=== PATIENT | female | born 2000 | race Caucasian/White ===

== ENCOUNTER 2024-07-15 17:12 | Emergency (ER) | payer OTHER, SELFPAY ==
[2024-07-15 17:21] VITALS: BP 128/72; PULSE 80; RESP 16; TEMP 36.8; O2SAT 99
--- NOTE | 2024-07-15 17:25 | ED.URI ---
HPI - URI/Sore Throat General Chief Complaint: Upper Respiratory Infection Stated Complaint: Sore Throat Time Seen by Provider: 07/15/24 17:25 History of Present Illness HPI Narrative: [age] year old female presented for complaint of sore throat for 5 days. States last week she had body aches and fatigue. Denies cough, sob, wheezing, n/v/d/f/c. Not taking anything for symptoms. Related Data Allergies Allergy/AdvReac Type Severity Reaction Status Date / Time montelukast (From Singulair) Allergy Mild Hives Verified 07/15/24 17:29 Review of Systems Review of Systems: CONSTITUTIONAL: reports body aches,denies fever, chills, or sweats. EYES: Denies visual changes, redness, or discharge. ENT: reports sore throat Denies rhinorrhea, congestion, or otalgia. CARDIOVASCULAR: Denies chest pain, palpitations, or edema. RESPIRATORY: Denies dyspnea. GASTROINTESTINAL: Denies abdominal pain, nausea, vomiting, or diarrhea. SKIN: Denies rash MUSCULOSKELETAL: Denies back pain NEUROLOGIC: Denies headache Exam Narrative: GENERAL: mildly Ill-appearing, no acute distress. EYES: conjunctivae clear ENT: Mucous membranes moist. TMs pearly mota with normal light reflex bilaterally; no tragal tenderness. Oropharynx erythematous without lesions. Tonsils not enlarged and without exudate. No drooling, no hoarseness, no trismus, uvula midline. No tripod positioning, hot potato voice, or soft palate swelling. NECK: Supple. No lymphadenopathy CHEST: Clear to auscultation, breath sounds equal. No respiratory distress, speaks in full sentences. HEART: Regular rate and rhythm. No murmur heard. SKIN: Warm, dry, no rash. NEURO: Alert and oriented x3. Flat affect. Course Course Emergency Course: Patient is aware of diagnosis, understands and agrees to treatment plan. Anticipatory guidance given. Patient agrees to follow-up as directed and is aware of reasons to seek care at the emergency department. Portions of this record may have been created with voice recognition software Level of Care: Express Care Visit Vital Signs Vital signs: Vital Signs Temperature 98.3 F 07/15/24 17:21 Pulse Rate 80 07/15/24 17:21 Respiratory Rate 16 07/15/24 17:21 Blood Pressure 128/72 07/15/24 17:21 Pulse Oximetry 99 07/15/24 17:21 Oxygen Delivery Room Air 07/15/24 17:21 Temperature 98.3 F 07/15/24 17:21 Pulse Rate 80 07/15/24 17:21 Respiratory Rate 16 07/15/24 17:21 Blood Pressure 128/72 07/15/24 17:21 Pulse Oximetry 99 07/15/24 17:21 Oxygen Delivery Room Air 07/15/24 17:21 MDM - URI/Sore Throat MDM Narrative Medical decision making narrative: neg strep result reviewed with pt. Advise supportive treatments. Patient is appropriate for outpatient treatment and follow-up. Differential Diagnosis Differential diagnosis: Likely upper respiratory infection, viral infection and pharyngitis Discharge Plan Discharge Clinical Impression: Upper respiratory infection Patient Disposition: Home, Self-Care Condition: Stable Instructions: Antibiotic Form, Upper Respiratory Infection (ED) Additional Instructions: Rapid strep swab was negative today You will be notified in a few days if the culture comes back positive for strep, and appropriate antibiotics will be called in at that time. if symptoms are due to a viral illness, it is not treated with antibiotics. Viral symptoms can be present for up to 10-14 days. Recommendations: Tylenol every 8 hours as needed for pain/fever Soft foods, cool liquids, warm tea. Gargle with warm saltwater twice a day. Chloraseptic spray and throat lozenges. Rest and stay hydrated. Flonase spray and Zyrtec for sinus congestion/drainage Cough syrup may cause drowsiness; avoid driving or take it at night time. --Follow up with your PCP --Go to the ER immediately if you cannot swallow your saliva, trouble breathing/wheezing, throat swelling, pain is persistent and severe Patient Language: Ukrainian Follow-up/Referrals: PHYSICIAN,YOGA TEACHER [Primary Care Provider] - Time of Disposition: 17:38
--- OUTSIDE RECORDS SUMMARY | 2024-07-15 17:27 | XMS_ITS | Referral Summary ---
Author Organization [facility] Address [address] [place] [address] Care Team Providers Care Cutting And Boning Supervisor Name Role Phone Unknown, Notinfile Primary Care Provider Unavail able Encounters Date Type Department Care Team Description 05/17/2024 Telephone [facility] [address] [place] [address] Karl Hernandez MD 05/01/2024 12:15 PM FLOUR MIXER Office Visit [facility] [address] [place] [address] Naomi Briones NP Sore throat (Primary Dx); Pharyngitis, unspecified etiology from Last 3 Months Allergies Active Allergy Reactions Criticality Noted Date Comments Amoxicillin Hives Medium 03/19/2018 1/2 of body covered Montelukast Hives Medium Reaction: Hives, Medications ibuprofen (ADVIL,MOTRIN) 600 mg tablet Take 1 tablet (600 mg total) by mouth every 8 (eight) hours as needed for pain or headaches (pain) 30 tablet 1 3 Active topiramate (TOPAMAX) 50 mg tablet Take 2 tablets by mouth once daily 90 tablet 3 Active tretinoin (RETIN-A) 0.05 % cream APPLY A PEA-SIZED AMOUNT TO THE ENTIRE FACE NIGHTLY 3 Active SUMAtriptan (IMITREX) 50 mg tabletIndication s:Migraine Take 1 tablet (50 mg total) by mouth once as needed for migraine May repeat after 2 hours. 10 tablet 1 4 12/16/19 25 Active rimegepant (NURTEC ODT) tablet,disintegr atingIndications :Migraine without status migrainosus, not intractable, unspecified migraine type Take 1 tablet (75 mg total) by mouth every other day 15 tablet 1 4 Active Additional Information Patient not taking.Reported on 05/01/2024 Tri-Sprintec, 28, 0.18/0.215/0.25 mg-35 mcg (28) per tablet Take 1 tablet by mouth daily 4 Active sertraline (ZOLOFT) 100 mg tabletIndication s:Persistent mood disorder Take 1 tablet by mouth once daily 30 tablet 5 Active Active Problems Problem Noted Date Diagnosed Date Annual physical exam 04/26/2023 Assessment & Plan (04/26/2023 2:47 PM FLOUR MIXER): Doing well. BMI:19.7 Underweight Routine labs ordered - GC/Chlamydia. HIV declined Preventative Screening Due: Pap Dietary and exercise recommendations given today. Recommend exercise at least 30 minutes moderate to vigorous exercise and some strength training most days of the week. (minimum 150 minutes weekly) Discussed MyPlate recommendations and increasing fruits and vegetables Age appropriate counseling provided - Safe sex practices, Seat belt use, alcohol/drug avoidance Vaccines due - HPV, COVID, FLU. TDAP RTC annually for f/u Left groin pain 04/26/2023 Assessment & Plan (04/26/2023 2:53 PM FLOUR MIXER): Recurrent. DDx: Renal Stone vs ovarian cyst vs colitis or diverticulitis etc Will obtain CT wo contrast Patient advised if no stones present on CT does not r/o stones given she may have passed one. If symptoms recur advised to go to Er immediately for evaluation Seasonal allergic rhinitis 01/24/2023 Assessment & Plan (01/24/2023 2:31 PM CDT): Chronic and recurrent. Will change anti-histamine Magalys daily. Trial of Astelin BID. Risks/benefits and alternatives discussed. If noted no improvement can switch to Flonase. If symptoms persist would refer to logging tractor operator Attention deficit 06/15/2022 Assessment & Plan (06/15/2022 11:32 AM FLOUR MIXER): Per patient chronic condition recently worsened. Given information for testing facilities to accurately access for diagnosis of ADD vs ADHD. This provider does not treat ADD or ADHD with stimulant medication. If diagnosis is confirmed could consider non stimulant medication such as Strattera Neck pain 05/18/2022 Assessment & Plan (07/20/2022 5:15 PM CDT): Chronic without radiation. No red flag symptoms. DDx:cervacalgia - Tylenol 500-1000mg q6h or Ibuprofen 800mg q8h prn pain. Counseled on risk of liver and/or kidney injury with prolonged use of medication. - Ice/Heat to affected area prn - Continue home exercises - Contact insurance to verify coverage for PT - F/u 4 weeks - Consider imaging if not improved at f/u Assessment & Plan (06/15/2022 11:33 AM FLOUR MIXER): Chronic without radiation. No red flag symptoms. DDx:cervacalgia - Tylenol 500-1000mg q6h or Ibuprofen 800mg q8h prn pain. Counseled on risk of liver and/or kidney injury with prolonged use of medication. - Ice/Heat to affected area prn - Exercise handout given - Contact insurance to verify coverage for PT - Telehealth f/u 4-6 weeks for re-evaluation - Consider imaging if not improved at f/u Assessment & Plan (05/18/2022 9:45 AM FLOUR MIXER): Chronic without radiation. No red flag symptoms. DDx:cervacalgia - Tylenol 500-1000mg q6h or Ibuprofen 800mg q8h prn pain. Counseled on risk of liver and/or kidney injury with prolonged use of medication. - Ice/Heat to affected area prn - Referred to PT for eval/treatment - RTC 4-6 weeks for re-evaluation - Consider imaging if not improved in 6 weeks. Persistent mood disorder 05/18/2019 Overview (10/22/2023): Anxiety and depression Assessment & Plan (01/24/2023 2:30 PM CDT): Chronic and stable. PHQ-9 score 2 pepe 7 not performed. -continue Zoloft 100 mg daily -follow-up 6 months Assessment & Plan (05/18/2022 9:43 AM FLOUR MIXER): Chronic and stable. PHQ-9 score 0 pepe 7 score -continue Zoloft 100 mg daily -follow-up 6 months Acquired kyphosis 10/03/2016 Acute bacterial tonsillitis 05/30/2016 Overview (08/02/2016): Acute bacterial tonsillitis Migraine headache 11/02/2009 Assessment & Plan (04/26/2023 2:50 PM FLOUR MIXER): Migraine headache Chronic and ongoing. No new neurological symptoms endorsed. Continue Migraine log to help ID triggers Continue Imitrex 50 mg prn. Risks/benefits and alternative discussed. Restart previous Topamax dosing 100mg daily. Consider counseling for stressors. Can also use Tylenol 500-1000mg q8h or Ibuprofen 800mg q8hr prn. Consider change in medication if notes appetite is suppressed. Samples of Nurtec given. Risks/benefits and alternatives discussed. F/u 3 months Assessment & Plan (01/24/2023 2:33 PM CDT): Migraine headache Chronic and improved. No new neurological symptoms endorsed. Continue Migraine log to help ID triggers Continue Imitrex 50 mg prn. Risks/benefits and alternative discussed. Continue Topamax 100mg daily. Consider counseling for stressors. Can also use Tylenol 500-1000mg q8h or Ibuprofen 800mg q8hr prn. Contact clinic 2-3 months if desiring change in medication due to ongoing suppressed appetite F/u 6 months Assessment & Plan (08/22/2022 9:13 AM CDT): Migraine headache Chronic and improved. No new neurological symptoms Continue Migraine log to help ID triggers Continue Imitrex 50 mg prn. Risks/benefits and alternative discussed. Increased Topamax 100mg daily. Risks/benefits and alternatives discussed Can also use Tylenol 500-1000mg q8h or Ibuprofen 800mg q8hr prn. F/u 4 weeks on telehealth appointment for re-eval or sooner if symptoms worsen. Assessment & Plan (07/20/2022 5:14 PM CDT): Migraine headache Recurrent. No focal neurological findings on previous PE. Start Migraine log to help ID triggers Continue Imitrex 50 mg prn. Risks/benefits and alternative discussed. Start Topamax 50mg daily. Risks/benefits and alternatives discussed Can also use Tylenol 500-1000mg q8h or Ibuprofen 800mg q8hr prn. F/u 4 weeks for re-eval or sooner if symptoms worsen. Assessment & Plan (06/15/2022 11:34 AM FLOUR MIXER): Migraine headache Recurrent. No focal neurological findings on previous PE. Start Migraine log to help ID triggers Change to Imitrex 50 mg prn. Risks/benefits and alternative discussed. Change to Elavil 10mg hs. Risks/benefits and alternatives discussed Can also use Tylenol 500-1000mg q8h or Ibuprofen 800mg q8hr prn. F/u 4 weeks for re-eval or sooner if symptoms worsen. Assessment & Plan (05/18/2022 9:43 AM FLOUR MIXER): Migraine headache Recurrent. No focal neurological findings on PE. Start Migraine log to help ID triggers Start (Maxalt 10mg prn). Risks/benefits and alternative discussed. Start Inderal 20mg BID. Risks/benefits and alternatives discussed Can also use Tylenol 500-1000mg q8h or Ibuprofen 800mg q8hr prn. F/u 4 weeks for re-eval or sooner if symptoms worsen. Immunizations Immunization Administration Dates Next Due DTaP 09/28/2006, 3,04/17/2002,02/13/2002 ,2001 Hep A, Pediatric 03/22/2014,12/03/2012 Hep B / HiB 04/17/2002,2001 Hep B, Adolescent or Pediatric 2001 HiB 01/11/2003,02/13/2002 IPV 09/28/2006,01/11/2003,02/13/2002 ,2001 MMR 09/28/2006,10/12/2002 Meningococcal ACWY, Unspecified 12/03/2012 Meningococcal Conjugate (Menveo) 02/08/2018 Pneumococcal Conjugate 7-Valent 07/06/2002,02/13,2001 Tdap 12/03/2012 Varicella 11/24/2015,10/12/2002 Social History Tobacco Use Types Packs/Day Years Used Date Smoking Tobacco: Never Smokeless Tobacco: Never Tobacco Cessation:Counseling Given: Yes Alcohol Use Standard Drinks/Week Comments No 0 (1 standard drink = 0.6 oz pur e alcohol) AUDIT-C Answer Date Recorded Q1: How often do you have a drink containing alc ohol? Never 04/26/2023 Average Number of Drinks Not on file 024 Frequency of Binge Drinking Not on file 08/2023 PHQ-2 Answer Date Recorded PHQ-2 Total Score (If total score is 3 or more points, staff should administer the PHQ-9) 0 04/26/2023 Comments No Sex and Gender Information Value Date Recorded Sex Assigned at Not on file Legal Sex Female 3:06 AM FLOUR MIXER Gender Identity Not on file Sexual Orientation Not on file Last Filed Vital Signs Vital Sign Reading Time Taken Comments Blood Pressure 114/62 05/01/2024 12:19 PM FLOUR MIXER Pulse 74 05/01/2024 12:19 PM FLOUR MIXER Temperature 36.3 C (97.4 F) 05/01/2024 12:19 PM FLOUR MIXER Respiratory Rate 16 05/01/2024 12:19 PM FLOUR MIXER Oxygen Saturation 99% 05/01/2024 12:19 PM FLOUR MIXER Inhaled Oxygen Concentration - - Weight 57.2 kg (126 lb) 05/01/2024 12:19 PM FLOUR MIXER Height 165.1 cm (5' 5 ) 05/01/2024 12:19 PM FLOUR MIXER Body Mass Index 20.97 05/01/2024 12:19 PM FLOUR MIXER Plan of Treatment Not on file Procedures Procedure Name Priority Date/Time Associated Diagnosis Comments POCT RAPID STREP Routine 05/01/2024 12:3 2 PM FLOUR MIXER Sore throat from Last 3 Months Results * POCT rapid strep A (05/01/2024 12:32 PM FLOUR MIXER) Rapid Strep A, POC Negative Negative Swab 05/01/2024 12:3 2 PM FLOUR MIXER Naomi Briones PARENT EDUCATOR POINT OF CARE TEST ORDERAB LES Final Result from Last 3 Months Insurance * Guarantor: Rhina Maxwell Account Type Relation to Patient Date of Phone Billing Address Personal/Family Self [address] [place] [address] [facility] CHOICE PLUS [facility] HMO/PPO Address: [facility] [address] [place] [address] * Guarantor: Rhina Maxwell Account Type Relation to Patient Date of Phone Billing Address Personal/Family Self [address] [place] [address] [facility] HEALTH DRIVER HEALTH PLAN [facility] HEALTH DRIVER HEALTH PLAN * Guarantor: Rhina Maxwell Account Type Relation to Patient Date of Phone Billing Address Personal/Family Self [address] [place] [address] Care Teams Cutting And Boning Supervisor Relationship Specialty Start Date End Date Unknown, Notinfile PCP - General 10/22/23
--- OUTSIDE RECORDS SUMMARY | 2024-07-15 17:27 | XMS_ITS | Clinical Summary ---
Author Organization [facility] Address [address] [place] [address] Phone Care Team Providers Care Relations Specialist Name Role Phone Atiya Chacon MD Primary Care Provider [phone] Social History Tobacco Use Types Packs/Day Years Used Date Smoking Tobacco: Never Assessed Comments Unknown Sex and Gender Information Value Date Recorded Sex Assigned at Not on file Legal Sex Female 10:00 PM CDT Gender Identity Not on file Sexual Orientation Not on file Plan of Treatment Health Maintenance Due Date Last Done Comments Hepatitis C Virus (HCV) Screening 2000 Human Papillomavirus (HPV) Immunization (1 - 3-dose series) 2016 Meningococcal B Immunization (1 of 2 - Standard) 2017 Influenza Immunization (#1) 2023 SARS-COV-2 Immunization (3 - season) 2023 01/05/2021, 12/15/2020 Respiratory Syncytial Virus (RSV) Immunization (Adult) (1 - 1-dose 75+ series) 2076 Hepatitis B Immunization Completed 002, 2001, 2001 Pneumococcal Immunization Combined Aged Out 07/06/2002, 02/13/2002, 2001 No longer eligible based on patient's age to complete this topic DTaP/Tdap/Td Immunization Discontinued 2012, 09/28/2006, 01/11/2003, Additional history exists TdaP Immunization Completed 12/03/2012 Meningococcal Immunization (ACWY) Completed 02/08/2018, 12/03/2012 Rotavirus Immunization Aged Out No lo nger eligible based on patient's age to complete this topic Insurance [employer] Care Teams Relations Specialist Relationship Specialty Start Date End Date Atiya Chacon MD [address] [place] [address] DR AD[address] [place] [id number] PCP - General Pediatrics 12/02/21
--- OUTSIDE RECORDS SUMMARY | 2024-07-15 17:27 | XMS_ITS ---
Care Plan - [facility] Created on: July 15, 2024 ADIEL AKERS : 2000 Sex: Female Author Organization [facility] Address [address] [place] [address] Phone Care Team Providers Care Gear Cutting Machine Set Up Operator Name Role Phone ROBERTO CARLOS TAVARES, REJI Richardson Unavailable
--- OUTSIDE RECORDS SUMMARY | 2024-07-15 17:27 | XMS_ITS | Encounter Summary ---
Author Organization [facility] Address [address] [place] [address] Care Team Providers Care Director Post Name Role Phone Unavailable Primary Care Provider Unavailabl e Prior Encounters Date Type Department Care Team Description 09/06/2021 Travel 09/06/2021 8:45 AM CDT Office Visit [facility] [address] [place] [address] Sylvain Granado DDS 08/16/2021 FA Only [facility] [address] [place] [id number] Sylvain Granado DDS Plan of Treatment Not on file Procedures Procedure Name Priority Date/Time Associated Diagnosis Comments 18 INTRAORIFICE BARRIER Routine 09/07/19 8:45 AM CDT 18 PULP VITALITY TESTS Routine 8:45 AM CDT 18 TREATMENT OF ROOT CANAL OBSTRUCTION; NON-SURGICAL ACCESS Routine 09/06/2021 8:45 AM CDT 18 ENDODONTIC THERAPY, MOLAR TOOTH (EXCLUDING FINAL MOSQUE) Routine 09/06/2021 8:45 AM CDT GREEN CHAIN PULLER CONSULT Routine 09/06/2021 8 :45 AM CDT Visit Diagnoses Not on file Insurance [facility] PPO
--- OUTSIDE RECORDS SUMMARY | 2024-07-15 17:27 | XMS_ITS ---
Author Organization [facility] Address [address] [place] [address] Phone Care Team Providers Care Separator Tender Name Role Phone REJI AZEVEDO MD Unavailable Unavailable Problems Includes: Active, inactive, and resolved Problems No Active Problems Plan of Treatment Findings Encounter Date Continue current medication SICK VISIT with JEM ZAMBRANO CPCRA-PC 03/21/2020 Last Documented On 0 2:20PM ; [facility] The options include close observation SI CK VISIT with MARYLOU ZAMBRANO CPCRA-PC 03/21/2020 Last Documented On 0 2:20PM ; [facility] Assessments Includes: Assessments for all patient encounters Findings Encounter Date Exposure to a viral disease SICK VISIT with JEM ZAMBRANO CPCRA-PC 03/21/2020 Last Documented On 0 2:20PM ; [facility] Medical Equipment - Implanted Devices Includes: Current and historical Devices No Medical Equipment Recorded Medications Administered Includes: Administered Medications in patient's chart No Administered Medications Recorded Results Includes: Results from 07/16/2023 through 07/15/2024 No Results Recorded For Specified Dates History of Present Illness History of Present Illness not supported for this document type No History of Present Illness Recorded Social History No Social History Recorded - Smoking Status Unknown Medical History Includes: Medical History in patient's chart Description Last Updated No exposure to a contagious disease 02/22 Last Documented On 0 2:20PM ; [facility] No exposure to a viral disease 0 Last Documented On 0 2:20PM ; [facility] Not taking OTC medications 03/21/2020 Last Documented On 0 2:20PM ; [facility] Family History Includes: Family History in patient's chart No Family History Recorded Review of Systems Review of Systems not supported for this document type No Review of Systems Recorded Mental Status No Mental Status Recorded Functional Status No Functional Status Recorded Physical Exam Physical Exam not supported for this document type No Physical Exam Recorded Allergies Includes: Active, inactive, and resolved Allergies No Known Allergies Insurance Includes: Active Insurance Policies Plan Name Member ID Group # Subscriber Relationship Effect contreras Dates - [facility] [employer] [id number] REJI AKERS Child Clinical Notes Includes: Signed Clinical Notes starting from 05/11/2022 No Clinical Notes Recorded
--- OUTSIDE RECORDS SUMMARY | 2024-07-15 17:27 | XMS_ITS ---
Author Organization [facility] Address [address] [place] [address] Phone Care Team Providers Care Screen Roller Name Role Phone REJI AZEVEDO MD Unavailable Unavailable Problems Includes: Active, inactive, and resolved Problems No Active Problems Plan of Treatment Findings Encounter Date Continue current medication SICK VISIT with JEM ZAMBRANO CPSYSTEMS CONSULTANT-PC 03/21/2020 Last Documented On 0 2:20PM ; [facility] The options include close observation SI CK VISIT with MARYLOU ZAMBRANO CPSYSTEMS CONSULTANT-PC 03/21/2020 Last Documented On 0 2:20PM ; [facility] Assessments Includes: Assessments for all patient encounters Findings Encounter Date Exposure to a viral disease SICK VISIT with JEM ZAMBRANO CPSYSTEMS CONSULTANT-PC 03/21/2020 Last Documented On 0 2:20PM ; [facility] Medical Equipment - Implanted Devices Includes: [...] 02/22 Last Documented On 0 2:20PM ; [facility] No exposure to a viral disease 0 Last Documented On 0 2:20PM ; [facility] Not taking OTC medications 03/21/2020 Last Documented On 0 2:20PM ; [facility] Family History Includes: Family History in [...] # Subscriber Relationship Effect contreras Dates - [facility] [employer] [id number] REJI AKERS Child Clinical Notes Includes: Signed Clinical Notes starting from 05/11/2022 No Clinical Notes Recorded
--- OUTSIDE RECORDS SUMMARY | 2024-07-15 17:27 | XMS_ITS | Clinical Summary ---
Author Organization [facility] Address [address] [place] [address] Care Team Providers Care Psychiatric Security Nurse Name Role Phone Unknown, Notinfile Primary Care Provider Unavail able Allergies Active Allergy Reactions Criticality Noted Date [...] 04/26/2023 Assessment & Plan (04/26/2023 2:47 PM BLADE OPERATOR): Doing well. BMI:19.7 Underweight Routine labs ordered [...] 04/26/2023 Assessment & Plan (04/26/2023 2:53 PM BLADE OPERATOR): Recurrent. DDx: Renal Stone vs ovarian cyst [...] Flonase. If symptoms persist would refer to junior systems administrator Attention deficit 06/15/2022 Assessment & Plan (06/15/2022 11:32 AM BLADE OPERATOR): Per patient chronic condition recently worsened. Given [...] f/u Assessment & Plan (06/15/2022 11:33 AM BLADE OPERATOR): Chronic without radiation. No red flag symptoms. [...] f/u Assessment & Plan (05/18/2022 9:45 AM BLADE OPERATOR): Chronic without radiation. No red flag symptoms. [...] months Assessment & Plan (05/18/2022 9:43 AM BLADE OPERATOR): Chronic and stable. 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 No new [...] worsen. Assessment & Plan (06/15/2022 11:34 AM BLADE OPERATOR): Migraine headache Recurrent. No focal neurological findings on previous PE. Start Migraine log to help ID triggers Change to Imitrex 50 mg prn. Risks/benefits and alternative discussed. Change to Elavil 10mg hs. Risks/benefits and alternatives discussed Can also use Tylenol 500-1000mg q8h or Ibuprofen 800mg q8hr prn. F/u 4 weeks for re-eval or sooner if symptoms worsen. Assessment & Plan (05/18/2022 9:43 AM BLADE OPERATOR): Migraine headache Recurrent. No focal neurological findings on PE. Start Migraine log to help ID triggers Start (Maxalt 10mg prn). Risks/benefits and alternative discussed. Start Inderal 20mg BID. Risks/benefits and alternatives discussed Can also use Tylenol 500-1000mg q8h or Ibuprofen 800mg q8hr prn. F/u 4 weeks for re-eval or sooner if symptoms worsen. Encounters Date Type Department Care Team Description 05/17/2024 Telephone [facility] [address] [place] [address] Karl Hernandez MD 05/01/2024 12:15 PM BLADE OPERATOR Office Visit [facility] Medical [facility] [place] [address] [place] [place] [address] Naomi Briones NP Sore throat (Primary Dx); Pharyngitis, unspecified etiology from Last 3 Months Immunizations Immunization Administration Dates Next Due DTaP 09/28/2006, 3,04/17/2002,02/13/2002 ,2001 Hep A, Pediatric 03/22/2014,12/03/2012 Hep B / HiB 04/17/2002,2001 Hep B, Adolescent or Pediatric 2001 HiB 01/11/2003,02/13/2002 IPV 09/28/2006,01/11/2003,02/13/2002 ,2001 MMR 09/28/2006,10/12/2002 Meningococcal ACWY, Unspecified 12/03/2012 Meningococcal Conjugate (Menveo) 02/08/2018 Pneumococcal Conjugate 7-Valent 07/06/2002,02/13,2001 Tdap 12/03/2012 Varicella 11/24/2015,10/12/2002 Medical History Medical History Date Comments Kyphosis Family History Medical History Relation Name Comments Hypertension Father Migraines Maternal Grandmother Diabetes Paternal Grandmother Hypertension Paternal Grandmother Relation Name Status Comments Father Maternal Grandmother Paternal Grandmother Social History Tobacco Use Types Packs/Day Years [...] on file Legal Sex Female 3:06 AM BLADE OPERATOR Gender Identity Not on file Sexual Orientation Not on file Obstetrics History Last Filed Vital Signs Vital Sign Reading Time Taken Comments Blood Pressure 114/62 05/01/2024 12:19 PM BLADE OPERATOR Pulse 74 05/01/2024 12:19 PM BLADE OPERATOR Temperature 36.3 C (97.4 F) 05/01/2024 12:19 PM BLADE OPERATOR Respiratory Rate 16 05/01/2024 12:19 PM BLADE OPERATOR Oxygen Saturation 99% 05/01/2024 12:19 PM BLADE OPERATOR Inhaled Oxygen Concentration - - Weight 57.2 kg (126 lb) 05/01/2024 12:19 PM BLADE OPERATOR Height 165.1 cm (5' 5 ) 05/01/2024 12:19 PM BLADE OPERATOR Body Mass Index 20.97 05/01/2024 12:19 PM BLADE OPERATOR Plan of Treatment Health Maintenance Due Date Last Done Comments Cervical Cancer Screening 2001 Hepatitis C Screening 2001 HPV Vaccines (1 - 3-dose series) 2016 Meningococcal B Vaccine (1 of 2 - Standard) 2017 DTaP/Tdap/Td Vaccine (7 - Td or Tdap) 12/03/2022 12/03/2012, 09/28/2006, 01/11/2003, Additional history exists Covid-19 Vaccine (3 - season) 2023 01/05/2021, 12/15/2020 Influenza Vaccine (#1) 2023 Depression Screening 04/26/2024 04/26/2023, 01/24/2023, 05/18/2022 Regular Well Visit/Exam 18-64 04/26/2024 04/26/2023 Hepatitis B Screening Completed 04/17/2002 , 2001, 2001 Pneumococcal vaccine <65 Aged Out 003, 02/13/2002, 2001 No longer eligible based on patient's age to complete this topic Varicella Vaccines Completed 11/24/2015, 10/12/2002 Procedures Procedure Name Priority Date/Time Associated Diagnosis Comments POCT RAPID STREP Routine 05/01/2024 12:3 2 PM BLADE OPERATOR Sore throat from Last 3 Months Results * POCT rapid strep A (05/01/2024 12:32 PM BLADE OPERATOR) Rapid Strep A, POC Negative Negative Swab 05/01/2024 12:3 2 PM BLADE OPERATOR Naomi Briones ACTUARIAL DIRECTOR POINT OF CARE TEST ORDERAB LES Final Result from Last 3 Months Insurance * Guarantor: Rhina Maxwell Account Type Relation to Patient Date of Phone Billing Address Personal/Family Self [id number] [place] [address] [facility] [employer] * Guarantor: Rhina Maxwell Account Type Relation to Patient Date of Phone Billing Address Personal/Family Self [id number] [place] [address] [employer] [facility] [employer] * Guarantor: Rhina Maxwell Account Type Relation to Patient Date of Phone Billing Address Personal/Family Self [phone] [place] [address] Care Teams Psychiatric Security Nurse Relationship Specialty Start Date End Date Unknown, Notinfile PCP - General 10/22/23
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
--- OUTSIDE RECORDS SUMMARY | 2024-07-15 17:27 | XMS_ITS | Data Portability ---
Author Organization DORON Mary RODRIGUEZ Address [address] [facility] [place] [address] Assessment No assessment recorded. Plan of Treatment Reminders Order Date Submit Date Provider Last Modified By Organization Details Last Modified Time Details Appointments None recorded. Lab jason parapsilosi s DNA, genital 2020 021 [facility], [address] [facility], [facility] [address], [place], [address], 1 16:10:36 bacterial vaginosis panel, vaginal 2020 021 EVON [facility], [address] [facility], [facility] [address], [place], [address], 1 16:10:36 CT + NG + TV, DNA, urine/swab 2019 020 SHELD[facility], [address] [facility], [facility] [address], [place], [address], 0 07:10:25 HCG, intact + beta subunit, quant, serum or plasma 2019 020 [facility]ON [facility], [address] [facility], [address], [place], [address], 0 07:10:26 Referral None recorded. Procedures None recorded. Surgeries None recorded. Imaging US, pelvis, complete 2023 024 EVON Barrett Scheduling, [address] [facility] , [place], [address], 4 09:38:10 Medication Orders Tri-Sprinte c (28) 0.18 mg(7)/0.215 mg(7)/0.25 mg(7)-0.035 mg tablet 2023 024 [email or web address] [facility] [address], [address] [place], [address], 4 17:23:08 Tri-Sprinte c (28) 0.18 mg(7)/0.215 mg(7)/0.25 mg(7)-0.035 mg tablet 2022 023 EVON [facility] [address], [address] [place], [address], 3 16:08:11 Patient TargetsNo targets recorded. Patient Instructions Encounter Date Encounter Id Patient Instructions Last Modified By Organization Details Last Modified Time 03/16/2020 [id number] -Pt educated on HPV vaccine. Pt unsure if she has had it. PT said she will check with PCP and let us know she wants vaccine. -Educated on the importance of SBE and awareness and CBE will start at age 21 -Discussed the importance of cervical cancer screenings and will start at age 21 -Educated osteoporosis prevention including calcium rich foods, weight bearing exercise. -Discussed the importance of exercise. -Nutrition discussed and the importance of a diet rich in fruits, vegetable, whole grains, and lean proteins. -Counseled regarding prevention of STD's and screening options, condom use and prevention. -Advised avoidance of tobacco, alcohol, and drugs. [email or web address] Not available 03/16/2020 10:28:42 03/14/2021 [id number] blood in the urine: care [email or web address] Not available 03/14/2021 15:19:45 Reason for Referral None Reported. Results Created Date Observation Date Name Description Value Unit Range Abnormal Flag Note LastModifiedBy Organization Detail LastModifiedTime 03/22/20 20 03/23/2020 CT + NG + TV, DNA, urine /swab chlamydia by NEFTALY Negati ve negati ve Not Available [facility] ([facility]) [address] [facility], [place], [address], 03/24/2020 07:10:25 03/22/20 20 03/23/2020 CT + NG + TV, DNA, urine /swab gonococcus by NEFTALY Negati ve negati ve Not Available [facility] ([facility]) [address] [place], [address], 03/24/2020 07:10:25 03/22/20 20 03/23/2020 CT + NG + TV, DNA, urine /swab trich vag by NEFTALY Negati ve negati ve Not Available [facility] ([facility]) [address] [place], [address], 03/24/2020 07:10:25 03/22/20 20 03/23/2020 HCG, intac t + beta subun it, quant , serum or plasm a HCG,beta subunit,qnt, serum <1 mIU/m L Femal e (Non- pregn ant) 0 - 5 (Post menop ausal ) 0 - 8 Femal e (Preg nant) Weeks of Gesta tion 3 6 - 71 4 10 - 750 5 217 - 2569 6 158 - 28007 7 2854 -1366 63 8 46618 -3639 71 9 80458 -1340 10 10 01823 -7502 77 12 24508 -2106 12 14 16410 - 84621 15 78404 - 74502 16 0253 - 80277 17 5615 - 45782 18 5308 - 20688 Jaya ECLIA metho dolog y Not Available [facility] ([facility]) [address] [facility], [place], [address], 03/24/2020 07:10:26 03/15/20 21 03/17/2021 URINE CULTU REHEIDY urine culture, routine Final report Not Available [facility] ([facility]) [address] [place], [address], 03/17/2021 07:07:21 03/15/20 21 03/17/2021 URINE CULTU REHEIDY NE result 1 Commen t Mixed uroge nital kain 50,00 0-100 ,000 colon y formi ng units per mL Not Available [facility] ([facility]) [address] [place], [address], 03/17/2021 07:07:21 04/18/20 21 04/19/2021 BACTE RIAL VAGIN OSIS, NEFTALY atopobium vaginae Low - 0 score Not Available [facility] ([facility]) [address] [place], [address], 04/19/2021 16:10:35 04/18/20 21 04/19/2021 BACTE RIAL VAGIN OSIS, NEFTALY bvab 2 Low - 0 score Not Available [facility] ([facility]) [address] [place], [address], 04/19/2021 16:10:35 04/18/20 21 04/19/2021 BACTE RIAL VAGIN OSIS, NEFTALY megasphaera 1 Low - 0 score Calcu late total score by blade johnson the 3 indiv idual bacte rial vagin osis (BV) marke r score s toget her. Total score is inter prete d as follo ws: Total score 0-1: Indic ates the absen ce of BV. Total score 2: Indet ermin ate for BV. Addit ional clini mickey data shoul d be evalu ated to estab qasim a diagn osis. Total score 3-6: Indic ates the prese nce of BV. This test was devel oped and its perfo rmanc e jose cteri stics deter mined by [facility]. It has not been clear ed or appro jose by the Food and Drug Admin istra tion. Not Available [facility] ([facility]) [address] [facility], [place], [address], 04/19/2021 16:10:35 04/18/20 21 04/19/2021 C ALBIC ANS + C GLABR STEVEN, NEFTALY jason albicans, NEFTALY Negati ve negati ve Not Available [facility] ([facility]) [address] [facility], [place], [address], 04/19/2021 16:10:36 04/18/20 21 04/19/2021 C ALBIC ANS + C GLABR STEVEN, NEFTALY jason glabrata, NEFTALY Negati ve negati ve Not Available [facility] ([facility]) [address] [facility], [place], [address], 04/19/2021 16:10:36 01/20/20 24 01/17/2024 US, pelvi s, compl ete No observ ation [facility] ed. [facility] Scheduling [address] [facility] [place], [address], 01/20/2024 13:44:38 Result Notes None recorded. Problems No Known Problems Procedures Surgical History None recorded. Imaging Results Imaging Date Name Status LastModified by Organiz ation Details LastModified Time 01/17/2024 US, pelvis, complete [facility] Scheduling [address] [facility] [place], [address], 01/20/2024 13:44:38 Procedure Notes None recorded. Medical Equipment None Reported. Allergies Allergen ID Allergen Name Allergen Category Reaction Reaction Severity Criticality Documentation Date Start Date Code Code System Note Provider Name and Address Organization Details Recorded Time 915136 Singulair medicatio n Not available Not available Not available 03/16/2020 38782 9 RxNorm Not Available Not Available Not Available Medications Name Sig Start Date Stop Date Status Note LastModified by Organization Details LastModified Time amoxicillin 500 mg capsule 09/03 completed Not Available Not Available Not Available minocycline 100 mg capsule TAKE 1 CAPSULE BY MOUTH ONCE DAILY 01/14 completed Not Available Not Available Not Available sertraline 100 mg tablet TAKE 1 TABLET BY MOUTH ONCE DAILY active Not Available Not Available No t Available sumatriptan 50 mg tablet TAKE ONE TABLET BY MOUTH AT ONSET OF MIGRAINE. IF SYMPTOMS PERSIST, A SECOND DOSE MAY BE TAKEN IN 2 HOURS. DO NOT EXCEED 2 DOSES IN A 24 HOUR PERIOD, UNLESS OTHERWISE INSTRUCTE D BY YOUR PHYSICIAN active Not Available Not Available No t Available fexofenadin e 180 mg tablet TAKE 1 TABLET BY MOUTH ONCE DAILY NEEDED (ALLERGIE S) active Not Available Not Available No t Available tretinoin 0.05 % topical cream APPLY A PEA SIZED AMOUNT TO THE ENTIRE FACE NIGHTLY active Not Available Not Available No t Available amitriptyli ne 10 mg tablet TAKE 1 TABLET BY MOUTH NIGHTLY 09/03 completed Not Available Not Available Not Available rizatriptan 10 mg disintegrat ing tablet DISSOLVE 1 TABLET IN MOUTH NEEDED FOR MIGRAINE, MAY REPEAT IN 2 HOURS IF UNRESOLVE D. DO NOT EXCEED 30MG IN 24 HOURS 09/03 completed Not Available Not Available Not Available minocycline 50 mg capsule Take 2 capsules every 12 hours by oral route. 09/03 completed Not Available Not Available Not Available azelastine 137 mcg (0.1 %) nasal spray USE 1 SPRAY(S) IN EACH NOSTRIL TWICE DAILY DIRECTED 01/14 completed Not Available Not Available Not Available ibuprofen 600 mg tablet TAKE 1 TABLET BY MOUTH EVERY 8 HOURS NEEDED FOR PAIN OR HEADACHES active Not Available Not Available No t Available propranolol 20 mg tablet TAKE 1 TABLET BY MOUTH TWICE DAILY 01/14 completed Not Available Not Available Not Available sertraline 50 mg tablet TAKE 2 TABLETS BY MOUTH ONCE DAILY 01/14 completed Not Available Not Available Not Available clindamycin 1 % lotion APPLY LOTION TOPICALLY TO ENTIRE FACE TWICE DAILY 01/14 completed Not Available Not Available Not Available Tri-Sprinte c (28) 0.18 mg(7)/0.215 mg(7)/0.25 mg(7)-0.035 mg tablet TAKE 1 TABLET BY MOUTH ONCE DAILY active Not Available Not Available No t Available topiramate 50 mg tablet TAKE 2 TABLETS BY MOUTH ONCE DAILY active Not Available Not Available No t Available Sprintec (28) 02/06 completed Not Available Not Available Not Available Nurte ODT 75 mg disintegrat ing tablet DISSOLVE 1 TABLET BY MOUTH EVERY OTHER DAY active Not Available Not Available No t Available BinaxNOW COVID-19 Ag Self Test kit Use as Directed on the Package 01/14 completed Not Available Not Available Not Available Vitals Date Recorded Body height Body mass index (BMI) Body mass index (BMI) Percentile per age and sex Body weight Provider Name and Address Organization Details Last Updated DateTime 03/16/2020 165.1 cm 20 kg/m2 31 % 93769.08 g CASSANDRA Oseguera [facility] 03/16/2020 09:30:45 Date Recorded Body height Body mass index (BMI) Body mass index (BMI) Percentile per age and sex Body weight Systolic blood pressure Diastolic blood pressure Provider Name and Address Organization Details Last Updated DateTime 1 165.1 cm 21.1 kg/m2 43 % 34722.5 1 g 112 mm[Hg] 60 mm[Hg] Daniella Chavarria MA [facility] 1 15:06:30 Date Recorded Body height Body mass index (BMI) Percentile per age and sex Body mass index (BMI) Body weight Systolic blood pressure Diastolic blood pressure Provider Name and Address Organization Details Last Updated DateTime 1 165.1 cm 46 % 21.3 kg/m2 43129.1 g 114 mm[Hg] 70 mm[Hg] Daniella Chavarria MA [facility] 1 10:59:20 Date Recorded Body height Body mass index (BMI) Body mass index (BMI) Percentile per age and sex Body weight Provider Name and Address Organization Details Last Updated DateTime 09/03/2022 165.1 cm 21.5 kg/m2 47 % 88330.56 g ClarisaCASSANDRA Seth [facility] 09/03/2022 16:00:53 Date Recorded Body height Body mass index (BMI) Body weight Heart rate Systolic blood pressure Diastolic blood pressure Provider Name and Address Organization Details Last Updated DateTime 4 165.1 cm 20.1 kg/m2 96923.9 6 g 90 /min 108 mm[Hg] 70 mm[Hg] Gillian rangel MA [facility] 4 17:00:08 Social History Question Answer Notes LastModified by Organizat ion Details LastModified Time Tobacco Smoking Status Never Sm[facility] 03/16/2020 09:34:30 Do You Have An Advance Directive? No Information not available 01/15/2024 What Is Your Level Of Alcohol Consumption? None Information not available 09/03/2022 Is Blood Transfusion Acceptable In An Emergency? Yes Information not available 01/15/2024 What Is Your Level Of Caffeine Consumption? None Information not available 09/03/2022 In The 14 Days Before Symptom Onset, Have You Had Close Contact With A Laboratory-confir med COVID-19 While That Case Was Ill? No Information not available 01/15/2024 In The 14 Days Before Symptom Onset, Have You Had Close Contact With A Person Who Is Under Investigation For COVID-19 While That Person Was Ill? No Information not available 01/15/2024 Have You Been To An Area Known To Be High Risk For COVID-19? No Information not available 01/15/2024 Are You Currently Employed? Yes Information not available 01/15/2024 Do You Or Have You Ever Used E-cigarettes Or Vape? Never Used Electronic Cigarettes Information not available 03/16/2020 What Is The Highest Grade Or Level Of School You Have Completed Or The Highest Degree You Have Received? 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 Information not available 01/15/2024 Have There Been Any Changes To Your Family Or Social Situation? No Information no t available 01/15/2024 What Was The Date Of Your Most Recent Tobacco Screening? 01/15/2024 Information not available 01/15/2024 How Many Children Do You Have? 0 Information not available 01/15/2024 Do You Have Any Pets? Yes Information not available 01/15/2024 What Is Your Relationship Status? Single Information not available 09/03/2022 Do You Use Your Seat Belt Or Car Seat Routinely? Yes Information not available 01/15/2024 Do You Have Smoke And Carbon Monoxide Detectors In Your Home? Yes Information not available 01/15/2024 Are You Passively Exposed To Smoke? No Information no t available 01/15/2024 Do You Or Have You Ever Used Smokeless Tobacco? Never Used Smokeless Tobacco Information not available 03/16/2020 How Much Tobacco Do You Smoke? No Information not available 03/16/2020 Do You Feel Stressed (tense, Restless, Nervous, Or Anxious, Or Unable To Sleep At Night)? CV2836-3 Information not available 01/15/2024 Do You Use Any Illicit Or Recreational Drugs? No Information not available 09/03/2022 Do You Use Sunscreen Routinely? Yes Information not available 01/15/2024 Has Tobacco Cessation Counseling Been Provided? No Information not available 01/15/2024 On What Date Was Tobacco Cessation Counseling Provided? 01/15/2024 Information not available 01/15/2024 Sex: Female Functional Status None recorded. Mental Status None recorded. Family History Relationship Description Onset Age of this Age Resolved Age Notes LastModified by Organization Details LastModified Time Father No current problems or disability [email or web address] Not available 02/21 09:34:25 Mother No current problems or disability [email or web address] Not available 02/21 09:34:25 Medical History Condition Response Other N High Blood Pressure N Breast Cancer N Thyroid Problems N Kidney or Bladder Problems N GI Problems N Depression N Blood Clots N Lung Disease N Acne N Have you had a mammogram in the last yea r? N Breast Problem N Eating Disorder N Anemia N Anesthesia Complications N Headaches/Migraines Y Anxiety Disorder Y Diabetes N Ovarian Cancer N Muscle, Joint, or Bone Problems N Blood Transfusions N Seizures/Epilepsy N Have you had a colonoscopy in the last 1 0 years? N Polyps N Infertility N Acid Reflux (GERD) N Cancer N Abuse/Domestic Violence N Asthma N Endometriosis N High Cholesterol N Hepatitis N Liver Disease N Heart Disease N Pre-Eclampsia N Osteoporosis N Gynecological History Statement/Question Response Flow Light Frequency of Cycle (Q days) 28 Sexually Active? Y On BCP's at Conception? Y Menses Monthly Y STIs/STDs N Sexual Problems? N Duration of Flow (days) 4 Current Control Method BCPs Age at Menarche 15 LMP Approximate Obstetrics History GPAL:G 0 P 0 0 0 0 Past Encounters Encounter ID Performer Location Encounter Start Date Encounter Closed Date Diagnosis/Indication Diagnosis SNOMED-CT Code Diagnosis ICD10 Code Diagnosis Note [id number] MARYCRUZ [place] 14 OB [address] [facility] [place] [address] 03/16/2020 09:28:38 03/16/2020 11:30:00 Contraception care management 958491404 Z30.9 Discussed all control options. Pt wants to switch from sprintec to Ortho tri-cyclen . Risks of hormonal control reviewed, patient was informed of risk including but not limited to thrombosis , embolism, pulmonary embolism, stroke, disability , sexual dysfunctio n & . Patient understand s these risk are increased with smoking. Pt understand s & accepts risks. Instructio ns/warning signs given. Safe sex counseling done. IF hcg negative will send rx for ortho Tricyclen. Pt start after next menses and then follow up in 3 months and as needed if issues occur. Pt notified to continue to follow up with Derm for her acne. High risk sexual behavior 750178820 Z72.51 Discussed std screening options. Pt opts for screening of gonorrhea, chlamydia, and trich. Pt educated on STD prevention . PT to come in for urine testing. [id number] MD [place] [address] [place] [address] [place] [address] 03/14/2021 14:51:59 03/15/2021 07:39:40 Blood in urine 15049660 R31.9 --Pt will RTC tomorrow to drop off urine, she is unable to urinate now Contracept ion care management 438655003 Z30.9 --continue OCPs [id number] MD [place]ello 14 OB [address] [facility] [place] [address] 04/18/2021 10:47:04 04/19/2021 05:40:09 Vaginal irritation 681713007 N89.8 [id number] MD [place] Bello [address] [place] [address] [place] [address] 09/03/2022 15:44:02 09/05/2022 10:12:46 Contraception care management 190799302 Z30.9 --continue OCPs Depression screening 171 105510 Z13.31 --continue anti-depre ssion medication [id number] MD [place] Bello [address] [place] [address] [place] [address] 01/15/2024 16:47:58 01/16/2024 14:33:57 Contraception care management 243991089 Z30.9 --continue OCPs Pain in pelvis 15244127 R10.2 Depression screening 171 732415 Z13.31 --PHQ9=4 Health Concerns Section Related Observation LastModified by Organization Detai ls LastModified Time None Recorded Concern Status LastModified by Organization Details LastModified Time None Recorded Advance Directives Directive N: Payers Encounter Date Sequence Insurance Name Policy Number Policy Miguel Covered Member ID Miguel Member ID Guarantor Name 03/16/2020 1 [employer] [facility] [id number] Stephen Hans [id number] Rhina Hans 03/14/2021 1 [employer] [id number] Michsinan Hans [id number] Rhina Hans 04/18/2021 1 [employer] [id number] Michsinan Hans [id number] Rhina Hans 09/03/2022 1 [employer] [id number] Michall Hans [id number] Rhina Hans 01/15/2024 1 [employer] [id number] Michsinan Hans [id number] Rhina Hans Notes Date Note Type Note Provider Name and Address Organization Details Recorded Time 03/16/2020 text/html Pt calling for control discussion. Pt reports she is on sprintec for contraception. Pt denies any issues with RAJANI. Pt repors Dr. Chacon, her websphere commerce consultant, is prescribing her sprintec. Pt reports she is seeing decision science analyst in [place] for acne and is on minocycline. Pt wanting to switch to RAJANI that will help with acne. Pt reports acne controlled at this time. Pt denies any other complaints. MARYCRUZ [place] Attn: Accounting,[address] [facility], [place], [address], [facility] 03/16/2020 10:29:44 03/14/2021 text/html Patient states s he has had no issues with control since starting her OCPs. She does admit to blood tinged urine outside of her period. She denies increased urinary frequency or pain with urination but states she bought azo a month ago because she thought she had a UTI. Brady Torre MD Attn: Accounting[address] [place], [address], [facility] 03/14/2021 15:20:04 04/18/2021 text/html Patient presents with the complaint of vaginal irritation and a white rash on the right labia. She denies any vaginal itching in the area, but states that it does feel irritated. Brady Torre MD Attn: Accounting[address] [place], [address], [facility] 04/18/2021 11:50:43 09/03/2022 text/html Patient presents for refill of OCPS. She admits to having migraines but denies aura. Pt denies any other complaints. Brady Torre MD Attn: Accounting[address] [facility], [place], [address], [facility] 09/03/2022 16:09:52 01/15/2024 text/html Patient presents with the complaint of irregularly occurring pain in the RLQ that sometimes lasts a week. She states the pain is sharp in nature and sometimes causes her to vomit. She does not correlate the pain to any particular time of the month. The patient also requests a refill control pills. Brady Torre MD Attn: Accounting[address] [place], [address], [facility] 01/15/2024 17:39:19 OBGyn Episode No OBEpisode recorded.
--- OUTSIDE RECORDS SUMMARY | 2024-07-15 17:27 | XMS_ITS | Clinical Summary ---
Author Organization [facility] Address [address] [place] [address] Phone Care Team Providers Care Axle And Frame Mechanic Name Role Phone REJI AZEVEDO MD Unavailable [...] - Last Documented On 03/22/2020 2:20PM ; [facility] - Continue current medication - Last Documented On 03/22/2020 2:20PM ; [facility] Rapid COVID testing performed was negative. Patient advised that they need to continue to according to the health department guidelines of 14 days past last exposure. We will call with Covid PCR results in 3-7 days. Call clinic for worsening symptoms or any concerns - Last Documented On 03/22/2020 2:20PM ; [facility] Assessments Includes: Assessments from this encounter Findings - [Z20.828 - Contact with and (suspected) exposure to other viral communicable diseases] Exposure to a viral disease - Last Documented On 03/22/2020 2:20PM ; [facility] Medical Equipment - Implanted Devices Includes: Current Devices No Medical Equipment Recorded Medications Administered Includes: Administered Medications from this encounter No Administered Medications Recorded Vital Signs Includes: Vital Signs from this encounter Vital Name 03/21/2020 04:32P Pulse Rate-Sitting (bpm) 83 Temp-Oral (F) 98.4 Oxygen Saturation (%) 98 Last Documented: On 03/21/2020 4:33PM ; [facility] Results Includes: Results discussed during this encounter Rapid COVID Test [facility] Ordered by MARYLOU ZAMBRANO CP,DOCTOR OF VETERINARY MEDICINE-PC on 05/21/2019 Collected: Reported: 03/21/2020 16:35 Last Documented On 0 4:35PM ; [facility] Reviewed on 03/21/2020; All test results are final unless otherwise noted. Rapid COVId NEGATIVE N (Normal) Last Documented On 0 4:35PM ; [facility] Int. QC Acceptable YES N (Normal) Last Documented On 0 4:35PM ; [facility] Lot # and Exp. Date [id number] 07/12/20 N (Normal) Last Documented On 0 4:35PM ; [facility] History of Present Illness Includes: History of [...] instructions Last Documented On 0 6:56PM ; [facility] Pt to use OTC fever/pain product as need ed per product instruction.~ Last Documented On 0 6:56PM ; [facility] Pt to use OTC expectorant product as nee ded per product instruction.~ Last Documented On 0 6:56PM ; [facility] Pt to use OTC cough product as needed pe r product instruction.~ Last Documented On 0 6:56PM ; [facility] plan of care reviewed and agreed to Last Documented On 0 6:56PM ; [facility] patient to call if symptoms worsen or not improved to update patient's status as needed Last Documented On 0 6:56PM ; [facility] Medical History Includes: Medical History addressed during this encounter Description Last Updated No exposure to a contagious disease 02/22 Last Documented On 0 2:20PM ; [facility] No exposure to a viral disease 0 Last Documented On 0 2:20PM ; [facility] Not taking OTC medications 03/21/2020 Last Documented On 0 2:20PM ; [facility] Family History Includes: Family History addressed [...] Check-Out Time Diagnosis SICK VISIT MARYLOU ZAMBRANO CP,DOCTOR OF VETERINARY MEDICINE-PC [facility] 0 3:30PM 4:50PM Exposure To Contagious Viral Disease Insurance Includes: Active Insurance Policies Plan Name Member ID Group # Subscriber Relationship Effect contreras Dates - [facility] [employer] [id number] REJI AKERS Child Clinical Notes Includes: Clinical Notes from this encounter No Clinical Notes Recorded
--- OUTSIDE RECORDS SUMMARY | 2024-07-15 17:27 | XMS_ITS | Clinical Summary ---
Author Organization [facility] [place] [address] [place] [address] Care Team Providers Care International Logistics Coordinator Name Role Phone Unavailable Primary Care Provider Unavailabl e Allergies No known active allergies Medications amoxicillin (AMOXIL) 500 mg capsule TAKE 1 CAPSULE BY MOUTH THREE TIMES DAILY UNTIL GONE 2 Active sertraline (ZOLOFT) 50 mg tablet Take 100 mg by mouth 1 (one) time each day. 2 Active ondansetron ODT (ZOFRAN-ODT) 4 mg dispersible tablet DISSOLVE 1 TABLET IN MOUTH EVERY 6 HOURS NEEDED FOR NAUSEA 2 Active Tri-Sprintec, 28, 0.18/0.215/0.25 mg-35 mcg (28) tablet Take 1 tablet by mouth 1 (one) time each day. 2 Active HYDROcodone-acet aminophen (NORCO) 5-325 mg tablet Take 1-2 tablets by mouth every 6 (six) hours if needed. for pain 2 Active Active Problems No known active problems Social History Tobacco Use Types Packs/Day Years Used Date Smoking Tobacco: Never Assessed Comments Unknown Sex and Gender Information Value Date Recorded Sex Assigned at Not on file Legal Sex Female 1:57 PM PDT Gender Identity Not on file Sexual Orientation Not on file Plan of Treatment Health Maintenance Due Date Last Done Comments Dental Oral Exam 2001 Dental Prophylaxis 2001 Dental X-Ray: Bitewings 2001 Dental X-Ray: Full Mouth 2001 Dental X-Ray: Panoramic 2001 Meningococcal B Vaccine (1 of 2 - Standard) 2017 Insurance [facility] PPO [place] [id number]
--- OUTSIDE RECORDS SUMMARY | 2024-07-15 17:28 | XMS_ITS ---
Care Plan - [facility] Created on: July 15, 2024 ADIEL AKERS : 2000 Sex: Female Author Organization [facility] Address [address] [place] [address] Phone Care Team Providers Care Sales Promotion Manager Name Role Phone ROBERTO CARLOS TAVARES, REJI Richardson Unavailable
[2024-07-15 17:38] LABS: EDSTREPNEGPOS1 Negative (Negative)
== END 2024-07-15 17:43 | disposition home or self-care (01) ==
PROVIDERS: Emergency Provider Nurse Practitioner Family
DX: J06.9 Acute upper respiratory infection, unspecified (principal)
CPT/HCPCS: 87081; 87880; 99213; G0463